=== PATIENT | male | born 1980 | race Caucasian/White ===

== ENCOUNTER → 2023-09-26 14:54 | Outpatient (CLI) | payer BC, SELFPAY | PROVIDERS: Visit Provider Physician Assistant | DX: J02.9 Acute pharyngitis, unspecified (principal) | CPT/HCPCS: 87070 ==

== ENCOUNTER 2024-06-04 11:30 | Observation (INO) | payer OTHER, SELFPAY ==
[2024-06-04] VITALS (40 sets, daily range): BP systolic 127–179; BP diastolic 75–109; PULSE 107–139; RESP 6–25; TEMP 36.3–37.1; O2SAT 92–100; BMI 28.3
--- NOTE | 2024-06-04 11:42 | DI.RAD.S_ITS ---
PROCEDURE: XR CHEST 1V INDICATIONS: Shortness of breath TECHNIQUE: One view of the chest was acquired. COMPARISON: None. FINDINGS: Surgical changes and devices: None. Lungs and pleura: Lungs are clear. No pleural effusions or pneumothorax. Mediastinum: Mediastinal contours appear normal. Heart size is normal. Bones and chest wall: No suspicious bony lesions. Overlying soft tissues appear unremarkable. IMPRESSION: No acute cardiopulmonary abnormality is seen. Dictated by: Randy Aponte M.D. on 06/04/2024 at 12:12 Approved by: Randy Aponte M.D. on 06/04/2024 at 12:15
--- NOTE | 2024-06-04 11:42 | EKG_ITS ---
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
[2024-06-04 12:07] LABS: Add Manual Diff / Slide Review NO; Basophils Absolute Auto 0 /uL (0-100); Basophils Percent Auto 0.4 % (0-2); Eosinophils Absolute Auto 400 /uL (0-450); Eosinophils Percent Auto 6.5 % (2-4); Hematocrit 48.9 % (41-53); Hemoglobin 16.8 g/dL (13.5-17.5); Lymphocytes Absolute Auto 2000 /uL (1100-4500); Lymphocytes Percent Auto 31.5 % (25-40); Mean Corpuscular HGB Conc 34.3 % (30-36); Mean Corpuscular Hemoglobin 31.7 PG (26-34); Mean Corpuscular Volume 92.4 fL (80-100); Monocytes Absolute Auto 600 /uL (0-900); Monocytes Percent Auto 9.4 % (3-14); Neutrophils Absolute Auto 3400 /uL (1500-7000); Neutrophils Percent Auto 52.2 % (50-75); Platelet Count 338 X10^3/uL (150-400); Red Blood Cell Count 5.29 X10^6/uL (4.5-5.9); Red Cell Distribution Width 13.8 % (11.6-14.8); White Blood Cell Count 6.5 X10^3/uL (4.5-11.0)
--- NOTE | 2024-06-04 12:07 | PC.NURSE ---
patient has been taking zirtec and benedryl for allergies to a speculated cat hair allergy. The patient has a short haired cat which he doesn't react to but the cat just had kitten with a father of unknown origin. The kittens are growing more hair and there is more dander in the house. The pt and thinks he may be reacting to that. He had allergies and asthma in the past and he thinks it may be similar to that in symptoms
--- NOTE | 2024-06-04 12:08 | ED_ITS ---
HPI - Skin/Abscess/Foreign Bdy General Chief complaint: Shortness of Breath/Dyspnea Stated complaint: SOB Time Seen by Provider: 06/04/24 11:41 Source: patient Mode of arrival: Ambulatory Limitations: no limitations Related Data Previous Rx's Medication Instructions Recorded dexamethasone 1.5 mg tablet 1.5 mg PO BID #14 tabs 06/04/24 doxycycline hyclate 100 mg tablet 100 mg PO BID #20 tabs 06/04/24 Allergies Allergy/AdvReac Type Severity Reaction Status Date / Time Penicillins Allergy Severe Anaphylaxis Verified 09/26/23 14:37 Pulmonary Results: 2 No Data to Display Patient History Social History Smoking Status: Former smoker Smoking Status: Former smoker alcohol intake frequency: 0-2 drinks per day Substance Use Type: does not use Exam Initial Vital Signs Initial Vital Signs: Vital Signs Temperature 98.1 F 06/04/24 11:35 Pulse Rate 121 H 06/04/24 11:35 Respiratory Rate 22 06/04/24 11:35 Blood Pressure 165/108 H 06/04/24 11:35 Pulse Oximetry 97 06/04/24 11:35 Oxygen Delivery Method Room Air 06/04/24 11:35 Course Orders Ordered: ED Orders 06/04/24 11:41 Respiratory Panel (Film Array) Stat 06/04/24 11:42 XR chest 1V Stat EKG-12 Lead Stat Measure peak expiratory flow ONCE RT Consult Eval and Treat NOW 06/04/24 11:54 D Dimer Stat 06/04/24 11:55 Complete Blood Count AUTO DIFF Stat Comprehensive Metabolic Panel Stat Lactate (Lactic Acid) Stat NT-proBNP (BNP-Adult 18+) Stat Prothrombin Time INR Stat Troponin I Stat Famotidine (Famotidine 20 Mg/2 Ml Vial) 20 mg IV NOW EDWARD Last Admin: 06/04/24 12:45 Dose: 20 mg Documented By: ELGIN Discontinued Medications Albuterol (Albuterol 2.5 Mg/3 Ml Neb (Adult)) 10 mg INH NOW ONE Stop: 06/04/24 14:49 Last Admin: 06/04/24 15:05 Dose: 10 mg Documented By: SARY Albuterol/Ipratropium (Albuterol/Ipratropium 3 Ml Ampul) 3 ml INH NOW ONE Stop: 06/04/24 11:55 Last Admin: 06/04/24 12:14 Dose: 3 ml Documented By: SARY Albuterol/Ipratropium (Albuterol/Ipratropium 3 Ml Ampul) 3 ml INH NOW ONE Stop: 06/04/24 12:39 Last Admin: 06/04/24 12:43 Dose: 3 ml Documented By: SARY Dexamethasone (Dexamethasone 10 Mg/Ml Vial) 10 mg IV NOW ONE Stop: 06/04/24 12:37 Last Admin: 06/04/24 12:45 Dose: 10 mg Documented By: ELGIN Magnesium Sulfate (Magnesium Sulfate) 2 gm in 50 mls @ 25 mls/hr IV NOW ONE Stop: 06/04/24 15:20 Last Admin: 06/04/24 13:45 Dose: Not Given Documented By: ELGIN Magnesium Sulfate (Magnesium Sulfate) 2 gm in 50 mls @ 150 mls/hr IV NOW ONE Stop: 06/04/24 14:05 Last Infusion: 06/04/24 14:28 Dose: Infused Documented By: ELGIN Co-signed By: GOGO Admin: 06/04/24 13:48 Dose: 150 mls/hr Documented By: ELGIN Co-signed By: ANGELITO Vital Signs Vital signs: Vital Signs - 8 hr 06/04/24 11:35 06/04/24 11:44 06/04/24 11:46 Temperature 98.1 F Pulse Rate 121 H 121 H Respiratory Rate 22 Blood Pressure 165/108 H 172/107 H Pulse Oximetry 97 96 Oxygen Delivery Method Room Air 06/04/24 11:46 06/04/24 11:51 06/04/24 11:51 Temperature Pulse Rate 119 H 117 H Respiratory Rate 21 13 Blood Pressure 161/95 H Pulse Oximetry 95 98 Oxygen Delivery Method 06/04/24 12:00 06/04/24 12:00 06/04/24 12:14 Temperature Pulse Rate 113 H 115 H Respiratory Rate 17 14 Blood Pressure 167/101 H Pulse Oximetry 99 95 Oxygen Delivery Method Room Air 06/04/24 12:30 06/04/24 12:30 06/04/24 12:43 Temperature Pulse Rate 107 H 118 H Respiratory Rate 12 12 Blood Pressure 137/87 Pulse Oximetry 97 99 Oxygen Delivery Method Room Air 06/04/24 13:00 06/04/24 13:00 06/04/24 13:30 Temperature Pulse Rate 108 H 112 H Respiratory Rate 15 18 Blood Pressure 146/92 H Pulse Oximetry 95 95 Oxygen Delivery Method 06/04/24 13:30 06/04/24 13:58 06/04/24 13:58 Temperature Pulse Rate 116 H Respiratory Rate 21 Blood Pressure 159/98 H 152/92 H Pulse Oximetry 94 Oxygen Delivery Method 06/04/24 14:00 06/04/24 14:00 06/04/24 14:05 Temperature Pulse Rate 120 H Respiratory Rate 25 H Blood Pressure 144/92 H 154/88 H Pulse Oximetry 94 Oxygen Delivery Method 06/04/24 14:05 06/04/24 14:10 06/04/24 14:10 Temperature Pulse Rate 114 H 113 H Respiratory Rate 24 24 Blood Pressure 158/84 H Pulse Oximetry 95 92 Oxygen Delivery Method 06/04/24 14:15 06/04/24 14:15 06/04/24 14:20 Temperature Pulse Rate 118 H 114 H Respiratory Rate 21 20 Blood Pressure 144/78 H Pulse Oximetry 93 94 Oxygen Delivery Method 06/04/24 14:20 06/04/24 14:25 06/04/24 14:25 Temperature Pulse Rate 112 H Respiratory Rate 18 Blood Pressure 147/83 H 146/85 H Pulse Oximetry 95 Oxygen Delivery Method 06/04/24 14:30 06/04/24 14:30 06/04/24 14:35 Temperature Pulse Rate 111 H Respiratory Rate 19 Blood Pressure 135/90 149/99 H Pulse Oximetry 96 Oxygen Delivery Method 06/04/24 14:35 06/04/24 14:40 06/04/24 14:40 Temperature Pulse Rate 114 H 113 H Respiratory Rate 24 16 Blood Pressure 149/95 H Pulse Oximetry 92 94 Oxygen Delivery Method 06/04/24 14:43 06/04/24 14:43 06/04/24 14:44 Temperature Pulse Rate 114 H 132 H Respiratory Rate 24 Blood Pressure 153/93 H Pulse Oximetry 96 98 Oxygen Delivery Method 06/04/24 14:45 06/04/24 14:45 06/04/24 14:50 Temperature Pulse Rate 113 H Respiratory Rate 22 Blood Pressure 148/93 H 149/93 H Pulse Oximetry 96 Oxygen Delivery Method 06/04/24 14:50 06/04/24 14:55 06/04/24 14:55 Temperature Pulse Rate 109 H 109 H Respiratory Rate 21 23 Blood Pressure 137/91 H Pulse Oximetry 95 96 Oxygen Delivery Method 06/04/24 15:00 06/04/24 15:00 06/04/24 15:05 Temperature Pulse Rate 110 H 110 H Respiratory Rate 20 22 Blood Pressure 139/93 H Pulse Oximetry 95 95 Oxygen Delivery Method 06/04/24 15:05 06/04/24 15:06 06/04/24 15:10 Temperature Pulse Rate 117 H Respiratory Rate 18 Blood Pressure 141/96 H 132/93 H Pulse Oximetry 96 Oxygen Delivery Method Room Air 06/04/24 15:10 06/04/24 15:15 06/04/24 15:15 Temperature Pulse Rate 116 H 116 H Respiratory Rate 11 L 6 L Blood Pressure 138/79 Pulse Oximetry 97 99 Oxygen Delivery Method 06/04/24 15:20 06/04/24 15:20 06/04/24 15:25 Temperature Pulse Rate 121 H 124 H Respiratory Rate 12 12 Blood Pressure 136/80 Pulse Oximetry 100 99 Oxygen Delivery Method 06/04/24 15:25 06/04/24 15:30 06/04/24 15:30 Temperature Pulse Rate 129 H Respiratory Rate 13 Blood Pressure 128/75 154/78 H Pulse Oximetry 99 Oxygen Delivery Method 06/04/24 15:35 06/04/24 15:35 06/04/24 15:40 Temperature Pulse Rate 127 H Respiratory Rate 15 Blood Pressure 163/84 H 168/83 H Pulse Oximetry 99 Oxygen Delivery Method 06/04/24 15:40 Temperature Pulse Rate 128 H Respiratory Rate 21 Blood Pressure Pulse Oximetry 94 Oxygen Delivery Method MDM - Skin/Abscess/Foreign Bdy Lab Data 06/04/24 11:55 06/04/24 11:55 Labs: Lab Results 06/04/24 06/04/24 06/04/24 Range/Units 11:41 11:54 11:55 WBC 6.5 (4.5-11.0) X10^3/uL RBC 5.29 (4.5-5.9) X10^6/uL Hgb 16.8 (13.5-17.5) g/dL Hct 48.9 (41-53) % MCV 92.4 (80-100) fL MCH 31.7 (26-34) PG MCHC 34.3 (30-36) % RDW 13.8 (11.6-14.8) % Plt Count 338 (150-400) X10^3/uL Neut % (Auto) 52.2 (50-75) % Lymph % (Auto) 31.5 (25-40) % [place] % (Auto) 9.4 (3-14) % Eos % (Auto) 6.5 H (2-4) % Baso % (Auto) 0.4 (0-2) % Neut # (Auto) 3400 (8301-6477) /uL Lymph # (Auto) 2000 (9026-1425) /uL [place] # (Auto) 600 (0-900) /uL Eos # (Auto) 400 (0-450) /uL Baso # (Auto) 0 (0-100) /uL PT 10.3 (9.4-12.5) SECONDS INR 0.9 (0.9-1.3) D-Dimer < 215 (<500) ng/ml Sodium 137 (137-145) mmol/L Potassium 4.0 (3.4-5.1) mmol/L Chloride 101 (98-107) mmol/L Carbon Dioxide 26 (22-32) mmol/L BUN 11 (9-20) mg/dL Creatinine 1.16 (0.66-1.25) mg/dL Estimated GFR > 60 (>60) mL/min BUN/Creatinine Ratio 9.5 (6-22) Glucose 99 (70-100) mg/dL Lactate 1.7 (0.7-2.1) mmol/L Calcium 9.2 (8.4-10.2) mg/dL Total Bilirubin 0.8 (0.2-1.3) mg/dL AST 45 (17-59) IU/L ALT 46 (<50) IU/L Alkaline Phosphatase 89 (38-126) U/L Troponin I < 0.012 (0.01-0.034) ng/mL NT-Pro-B Natriuret Pep < 20 (<125) pg/mL Total Protein 8.3 H (6.3-8.2) g/dL Albumin 4.7 (3.5-5.0) g/dL Globulin 3.6 (1.7-4.1) g/dL Albumin/Globulin Ratio 1.3 (1.0-2.8) Chlamy pneumoniae PCR Not detected (Not Detect) Adenovirus (PCR) Not detected (Not Detect) B. pertussis DNA (PCR) Not detected (Not Detect) B.parapertussis DNA PCR Not detected (Not Detecte) Coronavirus OC43 (PCR) Not detected (Not Detect) Coronavirus HKU1 (PCR) Not detected (Not Detect) Coronavirus 229E (PCR) Not detected (Not Detect) SARS-CoV-2 (PCR) Not detected (Not Detecte) Coronavirus NL63 (PCR) Not detected (Not Detect) Human Metapneumovir PCR Not detected (Not Detect) Influenza Type A (PCR) Not detected (Not Detect) Influenza Type B (PCR) Not detected (Not Detect) M. pneumoniae (PCR) Not detected (Not Detect) Parainfluenza 1 (PCR) Not detected (Not Detect) Parainfluenza 2 (PCR) Not detected (Not Detect) Parainfluenza 3 (PCR) Not detected (Not Detect) Parainfluenza 4 (PCR) Not detected (Not Detect) RSV (PCR) Not detected (Not Detect) Entero/Rhino (PCR) Not detected (Not Detect) Discharge Plan Departure Prescriptions: New doxycycline hyclate 100 mg tablet 100 mg PO BID Qty: 20 0RF dexamethasone 1.5 mg tablet 1.5 mg PO BID Qty: 14 0RF Referrals: Miscellaneous,Doctor, MD [Primary Care Provider] - Stand Alone Forms: Patient Portal/API
[2024-06-04] MEDS: ALBUTEROL/IPRATROPIUM 3 ML AMPUL INH ×2 (12:14→12:43)
[2024-06-04 12:18] LABS: Alanine Aminotransferase 46 IU/L (<50); Albumin 4.7 g/dL (3.5-5.0); Albumin Globulin Ratio 1.3 (1.0-2.8); Alkaline Phosphatase 89 U/L (38-126); Aspartate Aminotransferase 45 IU/L (17-59); BUN Creatinine Ratio 9.5 (6-22); Bilirubin Total 0.8 mg/dL (0.2-1.3); Blood Urea Nitrogen 11 mg/dL (9-20); Calcium 9.2 mg/dL (8.4-10.2); Carbon Dioxide 26 mmol/L (22-32); Chloride 101 mmol/L (98-107); Estimated Glomerular Filt Rate > 60 mL/min (>60); Globulin 3.6 g/dL (1.7-4.1); Glucose 99 mg/dL (70-100); HEMOLYSIS 19 (0-50); Lactate (Lactic Acid) 1.7 mmol/L (0.7-2.1); Sodium 137 mmol/L (137-145); Total Protein 8.3 g/dL (6.3-8.2)
[2024-06-04 12:20] LABS: INR 0.9 (0.9-1.3); Prothrombin Time 10.3 SECONDS (9.4-12.5)
[2024-06-04 12:28] LABS: D Dimer < 215 ng/ml (<500)
[2024-06-04 12:29] LABS: NT-proBNP (BNP-Adult 18+) < 20 pg/mL (<125); Troponin I < 0.012 ng/mL (0.01-0.034)
[2024-06-04 12:41] LABS: Adenovirus Not Detected (Not Detect); B. parapertussis Not Detected (Not Detecte); Bordetella pertussis Not Detected (Not Detect); Chlamydophila pneumoniae Not Detected (Not Detect); Coronavirus 229E Not Detected (Not Detect); Coronavirus HKU1 Not Detected (Not Detect); Coronavirus NL 63 Not Detected (Not Detect); Coronavirus OC43 Not Detected (Not Detect); Human Metapneumovirus Not Detected (Not Detect); Human Rhinovirus/Enterovirus Not Detected (Not Detect); Influenza A Not Detected (Not Detect); Influenza B Not Detected (Not Detect); Mycoplasma pneumoniae Not Detected (Not Detect); Parainfluenza Virus 1 Not Detected (Not Detect); Parainfluenza Virus 2 Not Detected (Not Detect); Parainfluenza Virus 3 Not Detected (Not Detect); Parainfluenza Virus 4 Not Detected (Not Detect); Respiratory Syncytial Virus Not Detected (Not Detect); SARS- CoV-2 Not Detected (Not Detecte)
[2024-06-04] MEDS: DEXAMETHASONE 10 MG/ML VIAL IV (12:45)
[2024-06-04] MEDS: FAMOTIDINE 20 MG/2 ML VIAL IV (12:45)
--- NOTE | 2024-06-04 12:54 | PC.NURSE ---
patient feeling better after 2 duonebs. lung sounds are improving thruought. exp wheezes have dimnished
[2024-06-04] MEDS: MAGNESIUM SULFATE 2 GM/50 ML PIGGYBACK IV (13:48)
--- NOTE | 2024-06-04 14:00 | PC.NURSE ---
lungs side more tight throughout with some inspiratory wheezes prior to admin of mag sulfate.
--- NOTE | 2024-06-04 14:44 | PC.NURSE ---
Ambulation Assessment - Patient states that he feels better compared to when he came in; but still having some shortness of breath. Patient's 02 sats remained steady. Heart rate climbed to 133 and stayed consistent
[2024-06-04] MEDS: ALBUTEROL 2.5 MG/3 ML NEB (ADULT) 10 MG INH (15:05)
--- NOTE | 2024-06-04 16:07 | PM.HP.1 ---
History of Present Illness History of Present Illness Date Patient Seen: 06/04/24 Chief complaint: SOB Narrative: The patient was a 44-year-old male with a history of childhood asthma. He was not had active aspirin some time. He recently had some kittens who now are growing longer hair and has developed acute dyspnea bringing him to the ED today. Upon arrival he was found to be quite tight and had wheezing. He was treated with multiple breathing treatments as well as steroids and had minimal improvement of his perceptions of dyspnea, tachypnea, and tachycardia. He denies recent fevers, chills, or URI symptoms. No chest pain. He does have a confirmed history of allergies to cats. He adds that they have 6 of these cats and that the living quarters are somewhat closed and they have not been doing much in terms of regular cleaning recently to minimize dander. He was improve substantially from the emergency department with regard to his breathing. He was still tachycardic from his albuterol. He was eating and able to talk comfortably. [facility] Social History household members: spouse and children Smoking Status: Former smoker alcohol intake: current Meds Home Medications and Allergies Allergies Allergy/AdvReac Type Severity Reaction Status Date / Time Penicillins Allergy Severe Anaphylaxis Verified 09/26/23 14:37 Review of Systems Review of Systems Narrative: All else reviewed and otherwise unremarkable except as noted in the history and physical. Exam Vital Signs (past 8 hours): - 06/04/24 11:35 06/04/24 11:44 06/04/24 11:46 Temperature 98.1 F Pulse Rate 121 H 121 H Respiratory Rate 22 Blood Pressure 165/108 H 172/107 H Pulse Oximetry 97 96 Oxygen Delivery Method Room Air Oxygen Flow Rate 06/04/24 11:46 06/04/24 11:51 06/04/24 11:51 Temperature Pulse Rate 119 H 117 H Respiratory Rate 21 13 Blood Pressure 161/95 H Pulse Oximetry 95 98 Oxygen Delivery Method Oxygen Flow Rate 06/04/24 12:00 06/04/24 12:00 06/04/24 12:14 Temperature Pulse Rate 113 H 115 H Respiratory Rate 17 14 Blood Pressure 167/101 H Pulse Oximetry 99 95 Oxygen Delivery Method Room Air Oxygen Flow Rate 06/04/24 12:30 06/04/24 12:30 06/04/24 12:43 Temperature Pulse Rate 107 H 118 H Respiratory Rate 12 12 Blood Pressure 137/87 Pulse Oximetry 97 99 Oxygen Delivery Method Room Air Oxygen Flow Rate 06/04/24 13:00 06/04/24 13:00 06/04/24 13:30 Temperature Pulse Rate 108 H 112 H Respiratory Rate 15 18 Blood Pressure 146/92 H Pulse Oximetry 95 95 Oxygen Delivery Method Oxygen Flow Rate 06/04/24 13:30 06/04/24 13:58 06/04/24 13:58 Temperature Pulse Rate 116 H Respiratory Rate 21 Blood Pressure 159/98 H 152/92 H Pulse Oximetry 94 Oxygen Delivery Method Oxygen Flow Rate 06/04/24 14:00 06/04/24 14:00 06/04/24 14:05 Temperature Pulse Rate 120 H Respiratory Rate 25 H Blood Pressure 144/92 H 154/88 H Pulse Oximetry 94 Oxygen Delivery Method Oxygen Flow Rate 06/04/24 14:05 06/04/24 14:10 06/04/24 14:10 Temperature Pulse Rate 114 H 113 H Respiratory Rate 24 24 Blood Pressure 158/84 H Pulse Oximetry 95 92 Oxygen Delivery Method Oxygen Flow Rate 06/04/24 14:15 06/04/24 14:15 06/04/24 14:20 Temperature Pulse Rate 118 H 114 H Respiratory Rate 21 20 Blood Pressure 144/78 H Pulse Oximetry 93 94 Oxygen Delivery Method Oxygen Flow Rate 06/04/24 14:20 06/04/24 14:25 06/04/24 14:25 Temperature Pulse Rate 112 H Respiratory Rate 18 Blood Pressure 147/83 H 146/85 H Pulse Oximetry 95 Oxygen Delivery Method Oxygen Flow Rate 06/04/24 14:30 06/04/24 14:30 06/04/24 14:35 Temperature Pulse Rate 111 H Respiratory Rate 19 Blood Pressure 135/90 149/99 H Pulse Oximetry 96 Oxygen Delivery Method Oxygen Flow Rate 06/04/24 14:35 06/04/24 14:40 06/04/24 14:40 Temperature Pulse Rate 114 H 113 H Respiratory Rate 24 16 Blood Pressure 149/95 H Pulse Oximetry 92 94 Oxygen Delivery Method Oxygen Flow Rate 06/04/24 14:43 06/04/24 14:43 06/04/24 14:44 Temperature Pulse Rate 114 H 132 H Respiratory Rate 24 Blood Pressure 153/93 H Pulse Oximetry 96 98 Oxygen Delivery Method Oxygen Flow Rate 06/04/24 14:45 06/04/24 14:45 06/04/24 14:50 Temperature Pulse Rate 113 H Respiratory Rate 22 Blood Pressure 148/93 H 149/93 H Pulse Oximetry 96 Oxygen Delivery Method Oxygen Flow Rate 06/04/24 14:50 06/04/24 14:55 06/04/24 14:55 Temperature Pulse Rate 109 H 109 H Respiratory Rate 21 23 Blood Pressure 137/91 H Pulse Oximetry 95 96 Oxygen Delivery Method Oxygen Flow Rate 06/04/24 15:00 06/04/24 15:00 06/04/24 15:05 Temperature Pulse Rate 110 H 110 H Respiratory Rate 20 22 Blood Pressure 139/93 H Pulse Oximetry 95 95 Oxygen Delivery Method Oxygen Flow Rate 06/04/24 15:05 06/04/24 15:06 06/04/24 15:10 Temperature Pulse Rate 117 H Respiratory Rate 18 Blood Pressure 141/96 H 132/93 H Pulse Oximetry 96 Oxygen Delivery Method Room Air Oxygen Flow Rate 06/04/24 15:10 06/04/24 15:15 06/04/24 15:15 Temperature Pulse Rate 116 H 116 H Respiratory Rate 11 L 6 L Blood Pressure 138/79 Pulse Oximetry 97 99 Oxygen Delivery Method Oxygen Flow Rate 06/04/24 15:20 06/04/24 15:20 06/04/24 15:25 Temperature Pulse Rate 121 H 124 H Respiratory Rate 12 12 Blood Pressure 136/80 Pulse Oximetry 100 99 Oxygen Delivery Method Oxygen Flow Rate 06/04/24 15:25 06/04/24 15:30 06/04/24 15:30 Temperature Pulse Rate 129 H Respiratory Rate 13 Blood Pressure 128/75 154/78 H Pulse Oximetry 99 Oxygen Delivery Method Oxygen Flow Rate 06/04/24 15:35 06/04/24 15:35 06/04/24 15:40 Temperature Pulse Rate 127 H Respiratory Rate 15 Blood Pressure 163/84 H 168/83 H Pulse Oximetry 99 Oxygen Delivery Method Oxygen Flow Rate 06/04/24 15:40 06/04/24 15:45 06/04/24 15:45 Temperature Pulse Rate 128 H 131 H Respiratory Rate 21 23 Blood Pressure 154/84 H Pulse Oximetry 94 97 Oxygen Delivery Method Nasal Cannula Oxygen Flow Rate 2 06/04/24 15:50 06/04/24 15:50 Temperature Pulse Rate 135 H Respiratory Rate 15 Blood Pressure 159/96 H Pulse Oximetry 96 Oxygen Delivery Method Oxygen Flow Rate Oxygen Delivery Method Nasal Cannula Oxygen Flow Rate 2 Narrative Exam Narrative: NAD, alert and oriented, fluent speech, calm. Speaking comfortably. Normocephalic skull, EOMI, anicteric sclera, symmetric pupils. Oropharynx unremarkable, no droop. Neck supple, midline trachea, no adenopathy. Lungs clear, normal rate and effort. Good air movement. Heart regular, no murmur gallop or rub. Tachycardia. Abdomen is soft, non distended and non tender. Extremities are free of edema. Skin is free of rash or lesions. Joints are not swollen or deformed. Judgment appears to be normal. Objective ECG Impression: Sinus tachycardia Nonspecific ST abnormality Imaging Chest x-ray: Radiologist's impression: No acute cardiopulmonary abnormality is seen. Labs 06/04/24 11:55 06/04/24 11:55 Labs: Laboratory Results - last 24 hr 06/04/24 06/04/24 06/04/24 11:41 11:54 11:55 WBC 6.5 RBC 5.29 Hgb 16.8 Hct 48.9 MCV 92.4 MCH 31.7 MCHC 34.3 RDW 13.8 Plt Count 338 Neut % (Auto) 52.2 Lymph % (Auto) 31.5 [place] % (Auto) 9.4 Eos % (Auto) 6.5 H Baso % (Auto) 0.4 Neut # (Auto) 3400 Lymph # (Auto) 2000 [place] # (Auto) 600 Eos # (Auto) 400 Baso # (Auto) 0 PT 10.3 INR 0.9 D-Dimer < 215 Sodium 137 Potassium 4.0 Chloride 101 Carbon Dioxide 26 BUN 11 Creatinine 1.16 Estimated GFR > 60 BUN/Creatinine Ratio 9.5 Glucose 99 Lactate 1.7 Calcium 9.2 Total Bilirubin 0.8 AST 45 ALT 46 Alkaline Phosphatase 89 Troponin I < 0.012 NT-Pro-B Natriuret Pep < 20 Total Protein 8.3 H Albumin 4.7 Globulin 3.6 Albumin/Globulin Ratio 1.3 Chlamy pneumoniae PCR Not detected Adenovirus (PCR) Not detected B. pertussis DNA (PCR) Not detected B.parapertussis DNA PCR Not detected Coronavirus OC43 (PCR) Not detected Coronavirus HKU1 (PCR) Not detected Coronavirus 229E (PCR) Not detected SARS-CoV-2 (PCR) Not detected Coronavirus NL63 (PCR) Not detected Human Metapneumovir PCR Not detected Influenza Type A (PCR) Not detected Influenza Type B (PCR) Not detected M. pneumoniae (PCR) Not detected Parainfluenza 1 (PCR) Not detected Parainfluenza 2 (PCR) Not detected Parainfluenza 3 (PCR) Not detected Parainfluenza 4 (PCR) Not detected RSV (PCR) Not detected Entero/Rhino (PCR) Not detected Assessment & Plan Assessment & Plan narrative: 1. Acute moderate asthma exacerbation, present on admission and active. Plan: -continue IV corticosteroids, Medrol 60 Q 8. -continue bronchodilators scheduled, and as needed. Anticipate 1 midnight of hospital care, observation status. THOR is June 05. Full code. Time-Based Coding :: 30 min spent with patient and on the chart (including review of chart, obtaining history, exam, reviewing outside data, placing orders, documenting exam and treatment plan, and counseling patient) on 06/04. Quality MIPS - Admit I confirm the patient?s Advance Care Plan is present, Code status is documented, Surrogate decision maker is in patient?s record [If Yes, STOP here]: Yes MIPS - Meds 'Current medications' to include all prescriptions, [id number] products, herbals, cannabis/cannabidiol products, and vitamin/mineral/dietary (nutritional) supplements. I have utilized all available resources to obtain, update, or review the patient?s current medications. [If Yes, STOP here]: Yes
--- NOTE | 2024-06-04 16:09 | ED_ITS ---
HPI - SOB/Dyspnea <Sabas Jarvis PA-C - Last Filed: 06/04/24 16:28> General Chief Complaint: Shortness of Breath/Dyspnea Stated Complaint: SOB Time Seen by Provider: 06/04/24 11:41 Source: patient Mode of arrival: Ambulatory Limitations: no limitations History of Present Illness HPI Narrative: This patient is a 44-year-old male with a history of asthma as a child and had his asthma triggered by long-haired cats at that time. he has not been on any type of inhaler for over 30 years. The patient recently had kittens delivered at his house which were short haired at the time of delivery. They have obviously had longer has the agent over the last 4 weeks. Last week, the patient began to experience worsening shortness of breath and an elevated heart rate. He denies night sweats, fever, chills, chest pain, recent prolonged travel or sitting, history of DVT or PE, back pain, SOLIS, PND or rash. No treatments have been tried for this. He states he woke up this morning feeling worse. Related Data Previous Rx's Medication Instructions Recorded albuterol sulfate 90 mcg/actuation 1 inh inhalation QID PRN shortness 06/05/24 aerosol inhaler of breath or wheezing #8.5 grams prednisone 10 mg tablet See Rx Instructions .Route 06/05/24 .COMPLEX #20 tabs Allergies Allergy/AdvReac Type Severity Reaction Status Date / Time Penicillins Allergy Severe Anaphylaxis Verified 06/08/24 10:59 Review of Systems <Sabas Jarvis PA-C - Last Filed: 06/04/24 16:28> Review of Systems Narrative: General: See HPI Respiratory: See HPI All other review of systems have been reviewed and ultimately negative unless otherwise stated in HPI. 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) Smoking Status: Former smoker (1 to1- 1/2 ppd, quit 2010) Tobacco: How many years used: 13 alcohol intake: current (10-15 servings/week) substance use type: former substance user (marijuana) Smoking Status: Former smoker alcohol intake frequency: 0-2 drinks per day Substance Use Type: does not use Exam <RAMON Brannon Last Filed: 06/04/24 16:28> Initial Vital Signs Initial Vital Signs: Vital Signs Temperature 98.1 F 06/04/24 11:35 Pulse Rate 121 H 06/04/24 11:35 Respiratory Rate 22 06/04/24 11:35 Blood Pressure 165/108 H 06/04/24 11:35 Pulse Oximetry 97 06/04/24 11:35 Oxygen Delivery Method Room Air 06/04/24 11:35 Const General: cooperative, healthy appearing, comfortable, well developed and well groomed HENIN Head: normal to inspection, normocephalic and atraumatic Nose: external nose normal and nares normal Mouth: oral mucosae normal, lip normal, tongue normal and oropharynx normal Eyes General: Yes appearance normal, both eyes and all related structures Neck Neck: normal visual inspection, full ROM and no meningeal signs Resp Other: Inspiratory and expiratory wheezes throughout even after multiple breathing treatments. They have improved but are still present. No rhonchi. Cardio Rate: regular rate and tachycardic Rhythm: regular rhythm Heart Sounds: S1 normal and S2 normal GI Inspection: normal to inspection Palpation: soft and no hepatosplenomegaly Back/Spine/Pelvis Back: normal to inspection Skin General: no rashes or lesions noted, elasticity normal and turgor normal Neuro General: patient alert, patient awake and patient oriented x3 Extrem General: normal to inspection and full ROM Psych Appearance: grossly normal and well kempt <Jacinda Beckham DO - Last Filed: 06/09/24 05:01> Initial Vital Signs Initial Vital Signs: Vital Signs Temperature 98.1 F 06/04/24 11:35 Pulse Rate 121 H 06/04/24 11:35 Respiratory Rate 22 06/04/24 11:35 Blood Pressure 165/108 H 06/04/24 11:35 Pulse Oximetry 97 06/04/24 11:35 Oxygen Delivery Method Room Air 06/04/24 11:35 Course <RAMON Brannon Last Filed: 06/04/24 16:28> Course Course Narrative: Patient was seen examined. Labs were drawn which were unremarkable which included a CBC, CMP, BNP, troponin, D-dimer and respiratory panel. The two-view chest x-ray revealed no acute cardiopulmonary processes, according to the radiologist. The patient had DuoNeb x2 as well as albuterol 10 mg x 1 plus magnesium 2 g IV. His wheezing has improved significantly but is still present. The patient has remained persistently and consistently tachycardic in the 130s. The patient was initially tachycardic prior to the breathing treatments. The patient is likely having signs and symptoms of an asthma exacerbation and will require admission/ observation. Dr. Kd MD has graciously agreed to admit the patient from a hospitalist standpoint. Please refer to the chart for any additional questions or details regarding this case. Orders Ordered: Discontinued Medications Acetaminophen (Acetaminophen 325 Mg Tablet) 650 mg PO Q6H PRN PRN Reason: Fever/Mild Pain (1-3) Albuterol (Albuterol 2.5 Mg/3 Ml Neb (Adult)) 10 mg INH NOW ONE Stop: 06/04/24 14:49 Last Admin: 06/04/24 15:05 Dose: 10 mg Documented By: SARY Albuterol (Albuterol 2.5 Mg/3 Ml Neb (Adult)) 2.5 mg INH [id number] PRN PRN Reason: Shortness Of Breath Or Wheezing Albuterol/Ipratropium (Albuterol/Ipratropium 3 Ml Ampul) 3 ml INH NOW ONE Stop: 06/04/24 11:55 Last Admin: 06/04/24 12:14 Dose: 3 ml Documented By: SARY Albuterol/Ipratropium (Albuterol/Ipratropium 3 Ml Ampul) 3 ml INH NOW ONE Stop: 06/04/24 12:39 Last Admin: 06/04/24 12:43 Dose: 3 ml Documented By: SARY Dexamethasone (Dexamethasone 10 Mg/Ml Vial) 10 mg IV NOW ONE Stop: 06/04/24 12:37 Last Admin: 06/04/24 12:45 Dose: 10 mg Documented By: ELGIN Doxycycline Hyclate (Doxycycline Hyclate 100 Mg Tablet) 100 mg PO BID [facility] Last Admin: 06/05/24 10:17 Dose: 100 mg Documented By: Admin: 06/04/24 20:44 Dose: 100 mg Documented By: LISE Famotidine (Famotidine 20 Mg/2 Ml Vial) 20 mg IV NOW [facility] Last Admin: 06/04/24 12:45 Dose: 20 mg Documented By: ELGIN Magnesium Sulfate (Magnesium Sulfate) 2 gm in 50 mls @ 25 mls/hr IV NOW ONE Stop: 06/04/24 15:20 Last Admin: 06/04/24 13:45 Dose: Not Given Documented By: ELGIN Magnesium Sulfate (Magnesium Sulfate) 2 gm in 50 mls @ 150 mls/hr IV NOW ONE Stop: 06/04/24 14:05 Last Infusion: 06/04/24 14:28 Dose: Infused Documented By: ELGIN Co-signed By: GOGO Admin: 06/04/24 13:48 Dose: 150 mls/hr Documented By: ELGIN Co-signed By: ANGELITO Methylprednisolone (Methylprednisolone 125 Mg/2 Ml Vial) 60 mg IV Q6HR [facility] Last Admin: 06/05/24 06:21 Dose: 60 mg Documented By: Admin: 06/05/24 00:05 Dose: 60 mg Documented By: Admin: 06/04/24 18:12 Dose: 60 mg Documented By: DICK Naloxone HCl (Naloxone 0.4 Mg/Ml Vial) 0.2 mg IV Q2MIN PRN PRN Reason: Opiate Reversal Sodium Chloride (Sodium Chloride 0.9% Flush) 10 ml IV PRN PRN PRN Reason: Flush Sodium Chloride (Sodium Chloride 0.9% Flush) 10 ml IV BID [facility] Last Admin: 06/05/24 10:19 Dose: Not Given Documented By: ROSE MARIE Admin: 06/04/24 20:44 Dose: 10 ml Documented By: LISE Consultations Consultation #1: Dr. Kd MD - Hospitalist Vital Signs Vital signs: Vital Signs - 8 hr 06/04/24 11:35 06/04/24 11:44 06/04/24 11:46 Temperature 98.1 F Pulse Rate 121 H 121 H Respiratory Rate 22 Blood Pressure 165/108 H 172/107 H Pulse Oximetry 97 96 Oxygen Delivery Method Room Air Oxygen Flow Rate 06/04/24 11:46 06/04/24 11:51 06/04/24 11:51 Temperature Pulse Rate 119 H 117 H Respiratory Rate 21 13 Blood Pressure 161/95 H Pulse Oximetry 95 98 Oxygen Delivery Method Oxygen Flow Rate 06/04/24 12:00 06/04/24 12:00 06/04/24 12:14 Temperature Pulse Rate 113 H 115 H Respiratory Rate 17 14 Blood Pressure 167/101 H Pulse Oximetry 99 95 Oxygen Delivery Method Room Air Oxygen Flow Rate 06/04/24 12:30 06/04/24 12:30 06/04/24 12:43 Temperature Pulse Rate 107 H 118 H Respiratory Rate 12 12 Blood Pressure 137/87 Pulse Oximetry 97 99 Oxygen Delivery Method Room Air Oxygen Flow Rate 06/04/24 13:00 06/04/24 13:00 06/04/24 13:30 Temperature Pulse Rate 108 H 112 H Respiratory Rate 15 18 Blood Pressure 146/92 H Pulse Oximetry 95 95 Oxygen Delivery Method Oxygen Flow Rate 06/04/24 13:30 06/04/24 13:58 06/04/24 13:58 Temperature Pulse Rate 116 H Respiratory Rate 21 Blood Pressure 159/98 H 152/92 H Pulse Oximetry 94 Oxygen Delivery Method Oxygen Flow Rate 06/04/24 14:00 06/04/24 14:00 06/04/24 14:05 Temperature Pulse Rate 120 H Respiratory Rate 25 H Blood Pressure 144/92 H 154/88 H Pulse Oximetry 94 Oxygen Delivery Method Oxygen Flow Rate 06/04/24 14:05 06/04/24 14:10 06/04/24 14:10 Temperature Pulse Rate 114 H 113 H Respiratory Rate 24 24 Blood Pressure 158/84 H Pulse Oximetry 95 92 Oxygen Delivery Method Oxygen Flow Rate 06/04/24 14:15 06/04/24 14:15 06/04/24 14:20 Temperature Pulse Rate 118 H 114 H Respiratory Rate 21 20 Blood Pressure 144/78 H Pulse Oximetry 93 94 Oxygen Delivery Method Oxygen Flow Rate 06/04/24 14:20 06/04/24 14:25 06/04/24 14:25 Temperature Pulse Rate 112 H Respiratory Rate 18 Blood Pressure 147/83 H 146/85 H Pulse Oximetry 95 Oxygen Delivery Method Oxygen Flow Rate 06/04/24 14:30 06/04/24 14:30 06/04/24 14:35 Temperature Pulse Rate 111 H Respiratory Rate 19 Blood Pressure 135/90 149/99 H Pulse Oximetry 96 Oxygen Delivery Method Oxygen Flow Rate 06/04/24 14:35 06/04/24 14:40 06/04/24 14:40 Temperature Pulse Rate 114 H 113 H Respiratory Rate 24 16 Blood Pressure 149/95 H Pulse Oximetry 92 94 Oxygen Delivery Method Oxygen Flow Rate 06/04/24 14:43 06/04/24 14:43 06/04/24 14:44 Temperature Pulse Rate 114 H 132 H Respiratory Rate 24 Blood Pressure 153/93 H Pulse Oximetry 96 98 Oxygen Delivery Method Oxygen Flow Rate 06/04/24 14:45 06/04/24 14:45 06/04/24 14:50 Temperature Pulse Rate 113 H Respiratory Rate 22 Blood Pressure 148/93 H 149/93 H Pulse Oximetry 96 Oxygen Delivery Method Oxygen Flow Rate 06/04/24 14:50 06/04/24 14:55 06/04/24 14:55 Temperature Pulse Rate 109 H 109 H Respiratory Rate 21 23 Blood Pressure 137/91 H Pulse Oximetry 95 96 Oxygen Delivery Method Oxygen Flow Rate 06/04/24 15:00 06/04/24 15:00 06/04/24 15:05 Temperature Pulse Rate 110 H 110 H Respiratory Rate 20 22 Blood Pressure 139/93 H Pulse Oximetry 95 95 Oxygen Delivery Method Oxygen Flow Rate 06/04/24 15:05 06/04/24 15:06 06/04/24 15:10 Temperature Pulse Rate 117 H Respiratory Rate 18 Blood Pressure 141/96 H 132/93 H Pulse Oximetry 96 Oxygen Delivery Method Room Air Oxygen Flow Rate 06/04/24 15:10 06/04/24 15:15 06/04/24 15:15 Temperature Pulse Rate 116 H 116 H Respiratory Rate 11 L 6 L Blood Pressure 138/79 Pulse Oximetry 97 99 Oxygen Delivery Method Oxygen Flow Rate 06/04/24 15:20 06/04/24 15:20 06/04/24 15:25 Temperature Pulse Rate 121 H 124 H Respiratory Rate 12 12 Blood Pressure 136/80 Pulse Oximetry 100 99 Oxygen Delivery Method Oxygen Flow Rate 06/04/24 15:25 06/04/24 15:30 06/04/24 15:30 Temperature Pulse Rate 129 H Respiratory Rate 13 Blood Pressure 128/75 154/78 H Pulse Oximetry 99 Oxygen Delivery Method Oxygen Flow Rate 06/04/24 15:35 06/04/24 15:35 06/04/24 15:40 Temperature Pulse Rate 127 H Respiratory Rate 15 Blood Pressure 163/84 H 168/83 H Pulse Oximetry 99 Oxygen Delivery Method Oxygen Flow Rate 06/04/24 15:40 06/04/24 15:45 06/04/24 15:45 Temperature Pulse Rate 128 H 131 H Respiratory Rate 21 23 Blood Pressure 154/84 H Pulse Oximetry 94 97 Oxygen Delivery Method Nasal Cannula Oxygen Flow Rate 2 06/04/24 15:50 06/04/24 15:50 Temperature Pulse Rate 135 H Respiratory Rate 15 Blood Pressure 159/96 H Pulse Oximetry 96 Oxygen Delivery Method Oxygen Flow Rate <Jacinda Beckham, - Last Filed: 06/09/24 05:01> Orders Ordered: Discontinued Medications Acetaminophen (Acetaminophen 325 Mg Tablet) 650 mg PO Q6H PRN PRN Reason: Fever/Mild Pain (1-3) Albuterol (Albuterol 2.5 Mg/3 Ml Neb (Adult)) 10 mg INH NOW ONE Stop: 06/04/24 14:49 Last Admin: 06/04/24 15:05 Dose: 10 mg Documented By: SARY Albuterol (Albuterol 2.5 Mg/3 Ml Neb (Adult)) 2.5 mg INH [id number] PRN PRN Reason: Shortness Of Breath Or Wheezing Albuterol/Ipratropium (Albuterol/Ipratropium 3 Ml Ampul) 3 ml INH NOW ONE Stop: 06/04/24 11:55 Last Admin: 06/04/24 12:14 Dose: 3 ml Documented By: SARY Albuterol/Ipratropium (Albuterol/Ipratropium 3 Ml Ampul) 3 ml INH NOW ONE Stop: 06/04/24 12:39 Last Admin: 06/04/24 12:43 Dose: 3 ml Documented By: SARY Dexamethasone (Dexamethasone 10 Mg/Ml Vial) 10 mg IV NOW ONE Stop: 06/04/24 12:37 Last Admin: 06/04/24 12:45 Dose: 10 mg Documented By: ELGIN Doxycycline Hyclate (Doxycycline Hyclate 100 Mg Tablet) 100 mg PO BID [facility] Last Admin: 06/05/24 10:17 Dose: 100 mg Documented By: Admin: 06/04/24 20:44 Dose: 100 mg Documented By: LISE Famotidine (Famotidine 20 Mg/2 Ml Vial) 20 mg IV NOW [facility] Last Admin: 06/04/24 12:45 Dose: 20 mg Documented By: ELGIN Magnesium Sulfate (Magnesium Sulfate) 2 gm in 50 mls @ 25 mls/hr IV NOW ONE Stop: 06/04/24 15:20 Last Admin: 06/04/24 13:45 Dose: Not Given Documented By: ELGIN Magnesium Sulfate (Magnesium Sulfate) 2 gm in 50 mls @ 150 mls/hr IV NOW ONE Stop: 06/04/24 14:05 Last Infusion: 06/04/24 14:28 Dose: Infused Documented By: ELGIN Co-signed By: GOGO Admin: 06/04/24 13:48 Dose: 150 mls/hr Documented By: ELGIN Co-signed By: ANGELITO Methylprednisolone (Methylprednisolone 125 Mg/2 Ml Vial) 60 mg IV Q6HR [facility] Last Admin: 06/05/24 06:21 Dose: 60 mg Documented By: Admin: 06/05/24 00:05 Dose: 60 mg Documented By: Admin: 06/04/24 18:12 Dose: 60 mg Documented By: DICK Naloxone HCl (Naloxone 0.4 Mg/Ml Vial) 0.2 mg IV Q2MIN PRN PRN Reason: Opiate Reversal Sodium Chloride (Sodium Chloride 0.9% Flush) 10 ml IV PRN PRN PRN Reason: Flush Sodium Chloride (Sodium Chloride 0.9% Flush) 10 ml IV BID [facility] Last Admin: 06/05/24 10:19 Dose: Not Given Documented By: ROSE MARIE Admin: 06/04/24 20:44 Dose: 10 ml Documented By: LISE Vital Signs Vital signs: Vital Signs - 8 hr 06/04/24 11:35 06/04/24 11:44 06/04/24 11:46 Temperature 98.1 F Pulse Rate 121 H 121 H Respiratory Rate 22 Blood Pressure 165/108 H 172/107 H Pulse Oximetry 97 96 Oxygen Delivery Method Room Air Oxygen Flow Rate 06/04/24 11:46 06/04/24 11:51 06/04/24 11:51 Temperature Pulse Rate 119 H 117 H Respiratory Rate 21 13 Blood Pressure 161/95 H Pulse Oximetry 95 98 Oxygen Delivery Method Oxygen Flow Rate 06/04/24 12:00 06/04/24 12:00 06/04/24 12:14 Temperature Pulse Rate 113 H 115 H Respiratory Rate 17 14 Blood Pressure 167/101 H Pulse Oximetry 99 95 Oxygen Delivery Method Room Air Oxygen Flow Rate 06/04/24 12:30 06/04/24 12:30 06/04/24 12:43 Temperature Pulse Rate 107 H 118 H Respiratory Rate 12 12 Blood Pressure 137/87 Pulse Oximetry 97 99 Oxygen Delivery Method Room Air Oxygen Flow Rate 06/04/24 13:00 06/04/24 13:00 06/04/24 13:30 Temperature Pulse Rate 108 H 112 H Respiratory Rate 15 18 Blood Pressure 146/92 H Pulse Oximetry 95 95 Oxygen Delivery Method Oxygen Flow Rate 06/04/24 13:30 06/04/24 13:58 06/04/24 13:58 Temperature Pulse Rate 116 H Respiratory Rate 21 Blood Pressure 159/98 H 152/92 H Pulse Oximetry 94 Oxygen Delivery Method Oxygen Flow Rate 06/04/24 14:00 06/04/24 14:00 06/04/24 14:05 Temperature Pulse Rate 120 H Respiratory Rate 25 H Blood Pressure 144/92 H 154/88 H Pulse Oximetry 94 Oxygen Delivery Method Oxygen Flow Rate 06/04/24 14:05 06/04/24 14:10 06/04/24 14:10 Temperature Pulse Rate 114 H 113 H Respiratory Rate 24 24 Blood Pressure 158/84 H Pulse Oximetry 95 92 Oxygen Delivery Method Oxygen Flow Rate 06/04/24 14:15 06/04/24 14:15 06/04/24 14:20 Temperature Pulse Rate 118 H 114 H Respiratory Rate 21 20 Blood Pressure 144/78 H Pulse Oximetry 93 94 Oxygen Delivery Method Oxygen Flow Rate 06/04/24 14:20 06/04/24 14:25 06/04/24 14:25 Temperature Pulse Rate 112 H Respiratory Rate 18 Blood Pressure 147/83 H 146/85 H Pulse Oximetry 95 Oxygen Delivery Method Oxygen Flow Rate 06/04/24 14:30 06/04/24 14:30 06/04/24 14:35 Temperature Pulse Rate 111 H Respiratory Rate 19 Blood Pressure 135/90 149/99 H Pulse Oximetry 96 Oxygen Delivery Method Oxygen Flow Rate 06/04/24 14:35 06/04/24 14:40 06/04/24 14:40 Temperature Pulse Rate 114 H 113 H Respiratory Rate 24 16 Blood Pressure 149/95 H Pulse Oximetry 92 94 Oxygen Delivery Method Oxygen Flow Rate 06/04/24 14:43 06/04/24 14:43 06/04/24 14:44 Temperature Pulse Rate 114 H 132 H Respiratory Rate 24 Blood Pressure 153/93 H Pulse Oximetry 96 98 Oxygen Delivery Method Oxygen Flow Rate 06/04/24 14:45 06/04/24 14:45 06/04/24 14:50 Temperature Pulse Rate 113 H Respiratory Rate 22 Blood Pressure 148/93 H 149/93 H Pulse Oximetry 96 Oxygen Delivery Method Oxygen Flow Rate 06/04/24 14:50 06/04/24 14:55 06/04/24 14:55 Temperature Pulse Rate 109 H 109 H Respiratory Rate 21 23 Blood Pressure 137/91 H Pulse Oximetry 95 96 Oxygen Delivery Method Oxygen Flow Rate 06/04/24 15:00 06/04/24 15:00 06/04/24 15:05 Temperature Pulse Rate 110 H 110 H Respiratory Rate 20 22 Blood Pressure 139/93 H Pulse Oximetry 95 95 Oxygen Delivery Method Oxygen Flow Rate 06/04/24 15:05 06/04/24 15:06 06/04/24 15:10 Temperature Pulse Rate 117 H Respiratory Rate 18 Blood Pressure 141/96 H 132/93 H Pulse Oximetry 96 Oxygen Delivery Method Room Air Oxygen Flow Rate 06/04/24 15:10 06/04/24 15:15 06/04/24 15:15 Temperature Pulse Rate 116 H 116 H Respiratory Rate 11 L 6 L Blood Pressure 138/79 Pulse Oximetry 97 99 Oxygen Delivery Method Oxygen Flow Rate 06/04/24 15:20 06/04/24 15:20 06/04/24 15:25 Temperature Pulse Rate 121 H 124 H Respiratory Rate 12 12 Blood Pressure 136/80 Pulse Oximetry 100 99 Oxygen Delivery Method Oxygen Flow Rate 06/04/24 15:25 06/04/24 15:30 06/04/24 15:30 Temperature Pulse Rate 129 H Respiratory Rate 13 Blood Pressure 128/75 154/78 H Pulse Oximetry 99 Oxygen Delivery Method Oxygen Flow Rate 06/04/24 15:35 06/04/24 15:35 06/04/24 15:40 Temperature Pulse Rate 127 H Respiratory Rate 15 Blood Pressure 163/84 H 168/83 H Pulse Oximetry 99 Oxygen Delivery Method Oxygen Flow Rate 06/04/24 15:40 06/04/24 15:45 06/04/24 15:45 Temperature Pulse Rate 128 H 131 H Respiratory Rate 21 23 Blood Pressure 154/84 H Pulse Oximetry 94 97 Oxygen Delivery Method Nasal Cannula Oxygen Flow Rate 2 06/04/24 15:50 06/04/24 15:50 Temperature Pulse Rate 135 H Respiratory Rate 15 Blood Pressure 159/96 H Pulse Oximetry 96 Oxygen Delivery Method Oxygen Flow Rate MDM - SOB/Dyspnea <Sabas P Jarvis, PA-C - Last Filed: 06/04/24 16:28> Differential Diagnosis Differential diagnosis: Likely acute exacerbation of chronic obstructive airways disease, congestive heart failure, community acquired pneumonia, asthma with exacerbation, pulmonary embolism and other Medical Records Attestation: I reviewed the patient's medical records. Lab Data Attestation: I reviewed the patient's lab results. 06/04/24 11:55 06/04/24 11:55 Labs: Lab Results 06/04/24 06/04/24 06/04/24 Range/Units 11:41 11:54 11:55 WBC 6.5 (4.5-11.0) X10^3/uL RBC 5.29 (4.5-5.9) X10^6/uL Hgb 16.8 (13.5-17.5) g/dL Hct 48.9 (41-53) % MCV 92.4 (80-100) fL MCH 31.7 (26-34) PG MCHC 34.3 (30-36) % RDW 13.8 (11.6-14.8) % Plt Count 338 (150-400) X10^3/uL Neut % (Auto) 52.2 (50-75) % Lymph % (Auto) 31.5 (25-40) % [place] % (Auto) 9.4 (3-14) % Eos % (Auto) 6.5 H (2-4) % Baso % (Auto) 0.4 (0-2) % Neut # (Auto) 3400 (8048-8916) /uL Lymph # (Auto) 2000 (8622-4948) /uL [place] # (Auto) 600 (0-900) /uL Eos # (Auto) 400 (0-450) /uL Baso # (Auto) 0 (0-100) /uL PT 10.3 (9.4-12.5) SECONDS INR 0.9 (0.9-1.3) D-Dimer < 215 (<500) ng/ml Sodium 137 (137-145) mmol/L Potassium 4.0 (3.4-5.1) mmol/L Chloride 101 (98-107) mmol/L Carbon Dioxide 26 (22-32) mmol/L BUN 11 (9-20) mg/dL Creatinine 1.16 (0.66-1.25) mg/dL Estimated GFR > 60 (>60) mL/min BUN/Creatinine Ratio 9.5 (6-22) Glucose 99 (70-100) mg/dL Lactate 1.7 (0.7-2.1) mmol/L Calcium 9.2 (8.4-10.2) mg/dL Total Bilirubin 0.8 (0.2-1.3) mg/dL AST 45 (17-59) IU/L ALT 46 (<50) IU/L Alkaline Phosphatase 89 (38-126) U/L Troponin I < 0.012 (0.01-0.034) ng/mL NT-Pro-B Natriuret Pep < 20 (<125) pg/mL Total Protein 8.3 H (6.3-8.2) g/dL Albumin 4.7 (3.5-5.0) g/dL Globulin 3.6 (1.7-4.1) g/dL Albumin/Globulin Ratio 1.3 (1.0-2.8) Chlamy pneumoniae PCR Not detected (Not Detect) Adenovirus (PCR) Not detected (Not Detect) B. pertussis DNA (PCR) Not detected (Not Detect) B.parapertussis DNA PCR Not detected (Not Detecte) Coronavirus OC43 (PCR) Not detected (Not Detect) Coronavirus HKU1 (PCR) Not detected (Not Detect) Coronavirus 229E (PCR) Not detected (Not Detect) SARS-CoV-2 (PCR) Not detected (Not Detecte) Coronavirus NL63 (PCR) Not detected (Not Detect) Human Metapneumovir PCR Not detected (Not Detect) Influenza Type A (PCR) Not detected (Not Detect) Influenza Type B (PCR) Not detected (Not Detect) M. pneumoniae (PCR) Not detected (Not Detect) Parainfluenza 1 (PCR) Not detected (Not Detect) Parainfluenza 2 (PCR) Not detected (Not Detect) Parainfluenza 3 (PCR) Not detected (Not Detect) Parainfluenza 4 (PCR) Not detected (Not Detect) RSV (PCR) Not detected (Not Detect) Entero/Rhino (PCR) Not detected (Not Detect) ECG Data Interpretation: 12-lead EKG performed on 06/04/2024 at 11:49 a.m. reveals sinus tachycardia with a ventricular rate of 120 beats per minute. No ST, T-wave elevation, depression or ectopy noted per my interpretation. MDM Narrative Medical decision making narrative: See above <Jacinda Omar Beckham DO - Last Filed: 06/09/24 05:01> Lab Data Labs: Lab Results 06/04/24 06/04/24 06/04/24 Range/Units 11:41 11:54 11:55 WBC 6.5 (4.5-11.0) X10^3/uL RBC 5.29 (4.5-5.9) X10^6/uL Hgb 16.8 (13.5-17.5) g/dL Hct 48.9 (41-53) % MCV 92.4 (80-100) fL MCH 31.7 (26-34) PG MCHC 34.3 (30-36) % RDW 13.8 (11.6-14.8) % Plt Count 338 (150-400) X10^3/uL Neut % (Auto) 52.2 (50-75) % Lymph % (Auto) 31.5 (25-40) % [place] % (Auto) 9.4 (3-14) % Eos % (Auto) 6.5 H (2-4) % Baso % (Auto) 0.4 (0-2) % Neut # (Auto) 3400 (8816-6572) /uL Lymph # (Auto) 2000 (1067-5656) /uL [place] # (Auto) 600 (0-900) /uL Eos # (Auto) 400 (0-450) /uL Baso # (Auto) 0 (0-100) /uL PT 10.3 (9.4-12.5) SECONDS INR 0.9 (0.9-1.3) D-Dimer < 215 (<500) ng/ml Sodium 137 (137-145) mmol/L Potassium 4.0 (3.4-5.1) mmol/L Chloride 101 (98-107) mmol/L Carbon Dioxide 26 (22-32) mmol/L BUN 11 (9-20) mg/dL Creatinine 1.16 (0.66-1.25) mg/dL Estimated GFR > 60 (>60) mL/min BUN/Creatinine Ratio 9.5 (6-22) Glucose 99 (70-100) mg/dL Lactate 1.7 (0.7-2.1) mmol/L Calcium 9.2 (8.4-10.2) mg/dL Total Bilirubin 0.8 (0.2-1.3) mg/dL AST 45 (17-59) IU/L ALT 46 (<50) IU/L Alkaline Phosphatase 89 (38-126) U/L Troponin I < 0.012 (0.01-0.034) ng/mL NT-Pro-B Natriuret Pep < 20 (<125) pg/mL Total Protein 8.3 H (6.3-8.2) g/dL Albumin 4.7 (3.5-5.0) g/dL Globulin 3.6 (1.7-4.1) g/dL Albumin/Globulin Ratio 1.3 (1.0-2.8) Chlamy pneumoniae PCR Not detected (Not Detect) Adenovirus (PCR) Not detected (Not Detect) B. pertussis DNA (PCR) Not detected (Not Detect) B.parapertussis DNA PCR Not detected (Not Detecte) Coronavirus OC43 (PCR) Not detected (Not Detect) Coronavirus HKU1 (PCR) Not detected (Not Detect) Coronavirus 229E (PCR) Not detected (Not Detect) SARS-CoV-2 (PCR) Not detected (Not Detecte) Coronavirus NL63 (PCR) Not detected (Not Detect) Human Metapneumovir PCR Not detected (Not Detect) Influenza Type A (PCR) Not detected (Not Detect) Influenza Type B (PCR) Not detected (Not Detect) M. pneumoniae (PCR) Not detected (Not Detect) Parainfluenza 1 (PCR) Not detected (Not Detect) Parainfluenza 2 (PCR) Not detected (Not Detect) Parainfluenza 3 (PCR) Not detected (Not Detect) Parainfluenza 4 (PCR) Not detected (Not Detect) RSV (PCR) Not detected (Not Detect) Entero/Rhino (PCR) Not detected (Not Detect) Discharge Plan Departure Patient Disposition: Admitted as Observation Clinical Impression: Acute dyspnea, Tachycardia Asthma with exacerbation Qualifiers: Asthma severity: moderate Asthma persistence: unspecified Qualified Code(s): J 45.901 - Unspecified asthma with (acute) exacerbation Admit Date/Time: 06/04/24 16:05 Admit Provider: Gamal Yi ED Sign-out <Jacinda Beckham DO - Last Filed: 06/09/24 05:01> Cosign ED Attending Cosignature Attestation: I was immediately available in the department for consultation. Case was staffed with myself.
--- NOTE | 2024-06-04 17:07 | PC.NURSE ---
PATIENT IS INDEP.STEADY ON FEET TO BATHROOM.DENIES ANY PAIN. ROOM AIR NOW.TALKING IN FULL SENTENCES, TO BRING IN DINNER PER REQUEST.DID NOT WANT TO GET IN BED YET,WALKING AROUND ROOM.
[2024-06-04] MEDS: methylPREDNISolone 125 MG/2 ML VIAL 60 MG IV (18:12)
--- NOTE | 2024-06-04 19:01 | PC.NURSE ---
assumed care of pt at 1715; pt amb in room; o2 sat 94-95% on room air; HR-135; pt denies c/o pain or SOB
[2024-06-04] MEDS: DOXYCYCLINE HYCLATE 100 MG TABLET PO (20:44)
[2024-06-04] MEDS: SODIUM CHLORIDE 0.9% FLUSH 10 ML IV (20:44)
[2024-06-05] MEDS: methylPREDNISolone 125 MG/2 ML VIAL 60 MG IV ×2 (00:05→06:21)
[2024-06-05 03:00] VITALS: BP 159/110; PULSE 102; RESP 18; TEMP 36.4; O2SAT 95
--- NOTE | 2024-06-05 06:32 | PC.NURSE ---
Physiotherapy Assistant Note-Patient has been ambulating independently on RA, SpO2 > 94%, denies dyspnea, no wheezing or coughing. On Telemetry, HR ST 110-120 at beginning of shift, 80s-90s by morning.
[2024-06-05 07:00] VITALS: BP 168/118; PULSE 107; RESP 16; TEMP 36.1; O2SAT 96
--- NOTE | 2024-06-05 09:11 | PC.NURSE ---
Pt A&O offers no overt c/o. Dr. Urrutia in to see Pt discuss possible d/c. Pt up independent in the room. Taking b'fast without difficulty.
[2024-06-05] MEDS: DOXYCYCLINE HYCLATE 100 MG TABLET PO (10:17)
--- NOTE | 2024-06-05 11:55 | PM.DS.1 ---
History of Present Illness History of Present Illness Date Patient Seen: 06/05/24 Time Patient Seen: 08:40 Date of Onset of Symptoms: 06/04/24 Chief complaint: SOB Narrative: The patient was a 44-year-old male with a history of childhood asthma. He was not had active aspirin some time. He recently had some kittens who now are growing longer hair and has developed acute dyspnea bringing him to the ED today. Upon arrival he was found to be quite tight and had wheezing. He was treated with multiple breathing treatments as well as steroids and had minimal improvement of his perceptions of dyspnea, tachypnea, and tachycardia. He denies recent fevers, chills, or URI symptoms. No chest pain. He does have a confirmed history of allergies to cats. He adds that they have 6 of these cats and that the living quarters are somewhat closed and they have not been doing much in terms of regular cleaning recently to minimize dander. He was improve substantially from the emergency department with regard to his breathing. He was still tachycardic from his albuterol. He was eating and able to talk comfortably. Discharge Providers Provider Date of admission: 06/04/24 16:05 Discharge Date: 06/05/24 Primary care physician: Doctor Bahman MD Consults: 06/04/24 16:21 Consult to Cardio/Pulmonary Rehabilitation Routine Comment: Physician Instructions: Evaluate and treat Discharge provider: Blair Urrutia MD Summary Hospital Course Discharge Diagnosis: 1. Acute moderate asthma exacerbation, present on admission and active. 2. Elevated blood pressure, without a prior diagnosis of hypertension. Hospital Course: The patient was administered IV steroids and frequently administer bronchodilators and improved and resolved at the time of discharge. he had adopted several kittens, noting a longstanding history of allergies to long haired cats but not short haired cats, only to discover that several of the kidneys were starting to grow long hair. His family cleaned his house thoroughly and isolated the long haired kittens such that they felt that the patient would return home to a safe environment without further exposures. He was feeling well and back to baseline at the time of discharge. Close outpatient follow-up was advised on a steroid taper with as needed albuterol. No other issues arose. Blood pressure was elevated in the 150s to 160s over 90s to 110s range. This was felt due to transient effects of high-dose steroids and outpatient follow-up was advised. The patient and family acknowledged understanding, agreement and appreciation of this plan of care. Status at Discharge Cognitive/behavioral status at discharge: oriented Functional status at discharge: independent ambulation Overall status at discharge: patient is back to baseline Time Spent with Patient Time spent: Greater than 30 minutes Exam Vital Signs (past 8 hours): - 06/05/24 07:00 Temperature 97.0 F L Pulse Rate 107 H Respiratory Rate 16 Blood Pressure 168/118 H Pulse Oximetry 96 Oxygen Flow Rate 0 Oxygen Delivery Method Room Air Oxygen Flow Rate 0 Narrative Exam Narrative: NAD, alert and oriented, fluent speech, calm. Speaking comfortably. Normocephalic skull, EOMI, anicteric sclera, symmetric pupils. Oropharynx unremarkable, no droop. Neck supple, midline trachea, no adenopathy. Lungs clear, normal rate and effort. Good air movement. Heart regular, no murmur gallop or rub. Tachycardia. Abdomen is soft, non distended and non tender. Extremities are free of edema. Skin is free of rash or lesions. Joints are not swollen or deformed. Judgment appears to be normal. Objective Imaging Chest x-ray: Radiologist's impression: No acute cardiopulmonary abnormality is seen. Labs 06/04/24 11:55 06/04/24 11:55 Labs: Laboratory Results - last 24 hr 06/04/24 06/04/24 06/04/24 11:41 11:54 11:55 WBC 6.5 RBC 5.29 Hgb 16.8 Hct 48.9 MCV 92.4 MCH 31.7 MCHC 34.3 RDW 13.8 Plt Count 338 Neut % (Auto) 52.2 Lymph % (Auto) 31.5 Swisher % (Auto) 9.4 Eos % (Auto) 6.5 H Baso % (Auto) 0.4 Neut # (Auto) 3400 Lymph # (Auto) 2000 Swisher # (Auto) 600 Eos # (Auto) 400 Baso # (Auto) 0 PT 10.3 INR 0.9 D-Dimer < 215 Sodium 137 Potassium 4.0 Chloride 101 Carbon Dioxide 26 BUN 11 Creatinine 1.16 Estimated GFR > 60 BUN/Creatinine Ratio 9.5 Glucose 99 Lactate 1.7 Calcium 9.2 Total Bilirubin 0.8 AST 45 ALT 46 Alkaline Phosphatase 89 Troponin I < 0.012 NT-Pro-B Natriuret Pep < 20 Total Protein 8.3 H Albumin 4.7 Globulin 3.6 Albumin/Globulin Ratio 1.3 Chlamy pneumoniae PCR Not detected Adenovirus (PCR) Not detected B. pertussis DNA (PCR) Not detected B.parapertussis DNA PCR Not detected Coronavirus OC43 (PCR) Not detected Coronavirus HKU1 (PCR) Not detected Coronavirus 229E (PCR) Not detected SARS-CoV-2 (PCR) Not detected Coronavirus NL63 (PCR) Not detected Human Metapneumovir PCR Not detected Influenza Type A (PCR) Not detected Influenza Type B (PCR) Not detected M. pneumoniae (PCR) Not detected Parainfluenza 1 (PCR) Not detected Parainfluenza 2 (PCR) Not detected Parainfluenza 3 (PCR) Not detected Parainfluenza 4 (PCR) Not detected RSV (PCR) Not detected Entero/Rhino (PCR) Not detected PFSH Social History household members: spouse and children Smoking Status: Former smoker alcohol intake: current Discharge Plan Discharge Plan Patient Disposition: Home Provider Discharge Comment: Followup with PCP 1 wk Discharge orders & Medications Prescriptions: New prednisone 10 mg tablet See Rx Instructions .ROUTE .COMPLEX Qty: 20 0RF Rx Instructions: administer with food or milk: 4 tablets daily for 2 days, then 3 tablets daily for 2 days then 2 tablets daily for 2 days then 1 tablet daily for 2 days then stop albuterol sulfate 90 mcg/actuation HFA aerosol inhaler 1 inh inhalation QID PRN (Reason: shortness of breath or wheezing) Qty: 8.5 0RF Follow up/Referrals: Doctor Ruggiero MD [Primary Care Provider] - Visit Report/Discharge Packet Stand Alone Forms: Patient Portal/API Discharge Data Primary Care Provider: Doctor Bahman Attending Provider: Gamal Yi Admit Date/Time: 06/04/24 16:05 Quality VTE Deep Vein Thrombosis/Pulmonary Embolism Present on Admission: No MIPS - Admit I confirm the patient?s Advance Care Plan is present, Code status is documented, Surrogate decision maker is in patient?s record [If Yes, STOP here]: Yes MIPS - Meds 'Current medications' to include all prescriptions, [id number] products, herbals, cannabis/cannabidiol products, and vitamin/mineral/dietary (nutritional) supplements. I have utilized all available resources to obtain, update, or review the patient?s current medications. [If Yes, STOP here]: Yes MIPS - DC The patient has a history of heart transplant or Left Ventricular Assist Device (LVAD). If yes, STOP here.: No The patient has current or prior documentation of left ventricular ejection fraction (LVEF) less than or equal to 40%, or moderate or severely depressed left ventricular systolic function.: No A. The patient was prescribed or already taking an Angiotensin-Converting Enzyme (POLLY) Inhibitor, or Angiotensin Receptor West (ARB).: No B. The patient was prescribed or already taking a beta-west. [If Yes to Both A & B, STOP here]: No Patient not prescribed/taking POLLY or ARB, no reason given.: No Patient not prescribed/taking beta-west, no reason given.: No PROFEE Charge Codes Discharge inpatient/observation: 62993
== END 2024-06-05 10:43 | disposition home or self-care (01) ==
LOC: ED 12:11 → AC 16:06
PROVIDERS: Emergency Medicine; Admitting Provider Hospitalist; Emergency Provider Physician Assistant; Referring Provider Physician Assistant; Visit Provider Hospitalist
DX: J45.41 Moderate persistent asthma with (acute) exacerbation (principal); R03.0 Elevated blood-pressure reading, without diagnosis of hypertension; Z11.52 Encounter for screening for COVID-19
CPT/HCPCS: 36415; 71045; 80053; 83605; 83880; 84484; 85025; 85379; 85610; 87633; 93005; 94150; 94640; 96361; 96374; 96375; 96376; 99285; G0378; J1100; J2919; J3475; J7613

== ENCOUNTER → 2024-06-25 11:50 | Outpatient (CLI) | payer OTHER, SELFPAY ==
[2024-06-04 16:45] VITALS: BMI 28.3
[2024-06-25 13:35] LABS: Add Manual Diff / Slide Review NO; Basophils Absolute Auto 200 /uL (0-100); Basophils Percent Auto 2.6 % (0-2); Eosinophils Absolute Auto 400 /uL (0-450); Eosinophils Percent Auto 6.4 % (2-4); Hematocrit 44.4 % (41-53); Hemoglobin 15.1 g/dL (13.5-17.5); Lymphocytes Absolute Auto 1300 /uL (1100-4500); Lymphocytes Percent Auto 22.2 % (25-40); Mean Corpuscular HGB Conc 34.1 % (30-36); Mean Corpuscular Hemoglobin 31.7 PG (26-34); Monocytes Absolute Auto 500 /uL (0-900); Monocytes Percent Auto 7.9 % (3-14); Neutrophils Absolute Auto 3700 /uL (1500-7000); Neutrophils Percent Auto 60.9 % (50-75); Platelet Count 307 X10^3/uL (150-400); Red Blood Cell Count 4.78 X10^6/uL (4.5-5.9); Red Cell Distribution Width 13.6 % (11.6-14.8)
[2024-06-25 13:57] LABS: Hemoglobin A1C% w Est Avg Glu 5.6 % (4.0-6.0)
[2024-06-25 14:19] LABS: Alanine Aminotransferase 38 IU/L (<50); Albumin 4.2 g/dL (3.5-5.0); Albumin Globulin Ratio 1.6 (1.0-2.8); Alkaline Phosphatase 84 U/L (38-126); Aspartate Aminotransferase 36 IU/L (17-59); BUN Creatinine Ratio 6.6 (6-22); Blood Urea Nitrogen 8 mg/dL (9-20); Calcium 9.3 mg/dL (8.4-10.2); Carbon Dioxide 29 mmol/L (22-32); Chloride 103 mmol/L (98-107); Cholesterol 277 mg/dL (140-199); Estimated Glomerular Filt Rate > 60 mL/min (>60); Globulin 2.7 g/dL (1.7-4.1); Glucose 84 mg/dL (70-100); HDL Cholesterol 69 mg/dL (40-60); HEMOLYSIS < 15 (0-50); LDL Cholesterol Calculated 187 mg/dL (<100); Potassium 4.4 mmol/L (3.4-5.1); Sodium 138 mmol/L (137-145); Total Protein 6.9 g/dL (6.3-8.2); Triglycerides 105 mg/dL (35-150)
[2024-06-26 19:26] LABS: HIV 1 & 2 Ab/Ag 4th Gen Combo NEGATIVE (NEGATIVE); Hep C Virus Ab w/Reflex Quant NEGATIVE s/c (NEGATIVE)
== END ==
PROVIDERS: PCP Family Medicine; Referring Provider Family Medicine; Visit Provider Family Medicine
DX: Z00.00 Encounter for general adult medical examination without abnormal findings (principal); Z13.1 Encounter for screening for diabetes mellitus; Z13.220 Encounter for screening for lipoid disorders; Z11.59 Encounter for screening for other viral diseases; R06.00 Dyspnea, unspecified; Z11.4 Encounter for screening for human immunodeficiency virus [HIV]; Z13.228 Encounter for screening for other metabolic disorders; J45.901 Unspecified asthma with (acute) exacerbation; R03.0 Elevated blood-pressure reading, without diagnosis of hypertension; Z87.891 Personal history of nicotine dependence
CPT/HCPCS: 36415; 80053; 80061; 83036; 85025; 86803; 87389